=== PATIENT | male | born 2000 | race Two or more races ===

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

== ENCOUNTER 2022-07-05 09:54 | Emergency (ER) | payer OTHER ==
[~2022-07-05] VITALS: Ht 165.1 cm; Wt 59.0 kg
[2022-07-05] MEDS ORDERED: AMOX-CLAV 875-1 EAC1 PO (11:20)
[2022-07-05] MEDS ORDERED: FLONASE16 GM PO (11:22)
== END 2022-07-05 11:26 | disposition home or self-care (01) ==
LOC: ER 09:54 → EMR PED 10:00
DX: J32.9 Chronic sinusitis, unspecified (principal); Z20.822 Contact with and (suspected) exposure to COVID-19